=== PATIENT | female | born 1990 | race Two or more races ===

== ENCOUNTER 2019-10-17 16:04 | Emergency (ER) | payer SELFPAY ==
[~2019-10-17] VITALS: Ht 177.8 cm; Wt 127.7 kg
--- NOTE | 2019-10-17 16:20 | NUR ---
Late Entry: Pt was brought in by [facility] for a ground level syncopial episode. Pt reports headache. Placed in bed, changed into gown and given blankets. Patient in NAD, pupils equal, round, reactive to light. Chest rise and fall symmetrical with respirations, denies any additional needs at this time. WCTM.
[2019-10-17 17:15] LABS: BASOPHILS # (AUTO) 0.03 x10^3/uL (0-0.1); BASOPHILS % (AUTO) 0 % (0-1); EOSINOPHILS # (AUTO) 0.06 x10^3/uL (0-0.4); EOSINOPHILS % (AUTO) 1 % (1-7); LYMPHOCYTES # (AUTO) 2.04 x10^3/uL (1-3.4); LYMPHOCYTES % (AUTO) 20 % (22-44); MD NO; MEAN CORPUSCULAR HEMOGLOBIN 28.9 pg (27.0-34.8); MEAN CORPUSCULAR HGB CONC 33.2 g/dL (32.4-35.8); MEAN CORPUSCULAR VOLUME 87.1 fL (80-100); MEAN PLATELET VOLUME 7.9 fL (7.4-10.4); MONOCYTES # (AUTO) 0.87 x10^3/uL (0.2-0.8); MONOCYTES % (AUTO) 9 % (2-9); NEUTROPHILS # (AUTO) 7.07 x10^3/uL (1.8-6.8); NEUTROPHILS % (AUTO) 70 % (42-75); PLATELET COUNT 287 x10^3/uL (130-400); RED BLOOD COUNT 4.58 x10^6/uL (3.82-5.3); RED CELL DISTRIBUTION WIDTH 13.4 % (9.6-15.2)
[2019-10-17 17:18] LABS: ALANINE AMINOTRANSFERASE 20 U/L (12-78); ALBUMIN 3.5 g/dL (3.4-5.0); ANION GAP 7 mmol/L (5-15); CALCIUM 8.5 mg/dL (8.5-10.1); CHLORIDE 110 mmol/L (98-107); CREATININE 1.15 mg/dL (0.55-1.02)
--- NOTE | 2019-10-17 17:20 | NUR ---
Note kelley in EDM - 10/17/19 at 1842 by PATRICE Late Entry: Pt laying in bed. Straight cath pt for urine sample to send to lab. Awaiting CT, pt in NAD. Denies any additional needs at this time. Friend at bedside, call light within reach. WCTM.
--- NOTE | 2019-10-17 17:20 | NUR ---
Late Entry: Pt laying in bed. Attempted clean catch urine sample to send to lab, sample unable to be used due to menstrual blood in sample. Awaiting CT, pt in NAD. Denies any additional needs at this time. Friend at bedside, call light within reach. WCTM.
[2019-10-17 17:22] LABS: ALKALINE PHOSPHATASE 45 U/L (45-117); BILIRUBIN,TOTAL 0.6 mg/dL (0.2-1.0); TOTAL PROTEIN 7.6 g/dL (6.4-8.2)
[2019-10-17 18:36] VITALS: BP 137/69
--- NOTE | 2019-10-17 18:42 | NUR ---
Pt straight cath and sample walked to lab. Pt resting in bed, supine, equal chest rise and fall. Friend at bedside. Awaiting CT results. pt in NAD, denies additional needs at this time. WCTM
[2019-10-17 18:45] LABS: MICROSCOPIC AUTO
[2019-10-17 18:48] LABS: CULTURE INDICATED? YES
--- NOTE | 2019-10-17 18:56 | NUR ---
Bedside report to Pancho MARTE, pt care transferred at this time.
== END 2019-10-17 19:59 | disposition home or self-care (01) ==
LOC: ED 19:50
DX: S06.9X1A Unspecified intracranial injury with loss of consciousness of 30 minutes or less, initial encounter (principal); R55 Syncope and collapse; M54.2 Cervicalgia; W18.30XA Fall on same level, unspecified, initial encounter; Y93.89 Activity, other specified; Y92.89 Other specified places as the place of occurrence of the external cause; Y99.8 Other external cause status
CPT/HCPCS: 36415; 70450; 71045; 72125; 80053; 81001; 84703; 85025; 87086; 93005; 99285